=== PATIENT | male | born 1975 | race Caucasian/White ===

== ENCOUNTER 2021-09-03 14:15 | Emergency (ER) | payer BC ==
[~2021-09-03] VITALS: Ht 162.6 cm; Wt 93.2 kg
[2021-09-03 14:22] VITALS: TEMP 97.8
[2021-09-03 17:03] VITALS: BP 122/70; PULSE 61
== END 2021-09-03 17:15 | disposition home or self-care (01) ==
LOC: COL.ER 14:15
DX: H93.13 Tinnitus, bilateral (principal)

== ENCOUNTER 2021-09-26 15:06 | Emergency (ER) | payer BC ==
[~2021-09-26] VITALS: Ht 193 cm; Wt 93.6 kg
[2021-09-26 15:10] VITALS: TEMP 98
[2021-09-26 15:53] LABS: BASO % 0.5 % (0.0-2.0); EOS % 0.7 % (0.0-4.0); GRAN # 2.8 K/mm3 (1.4-6.5); GRAN % 66.8 % (42.2-75.2); HEMATOCRIT 40.7 % (42.0-52.0); HEMOGLOBIN 13.8 g/dl (13.5-18.0); LYMPH # 0.9 K/mm3 (1.2-3.4); LYMPH % 21.9 % (20.0-51.0); MEAN CELL VOLUME 86 fl (80.0-100.0); MEAN CORPUSCULAR HEMOGLOBIN 29 pg (27-31); MEAN CORPUSCULAR HGB CONC 34 g/dl (33.0-37.0); MONO # 0.4 K/mm3 (0.1-0.6); MONO % 9.6 % (1.7-9.3); PLATELET COUNT 152 K/mm3 (130-400); RED BLOOD COUNT 4.75 M/mm3 (4.20-5.60); REDCELL DISTRIBUTION WIDTH-CV 12.5 % (11.5-14.5)
[2021-09-26 16:11] LABS: ALBUMIN 4.2 gm/dL (3.5-5.0); BILIRUBIN,TOTAL 0.7 mg/dL (0.2-1.2); C-REACTIVE PROTEIN 0.11 mg/dL (0.00-0.50); CALCIUM 9.4 mg/dL (8.4-10.2); CREATININE, serum 1.38 mg/dL (0.72-1.25); POTASSIUM 4.2 mmol/L (3.5-4.5)
[2021-09-26] MEDS ORDERED: PRILOSEC 20MG20 MG PO (17:22)
[2021-09-26] MEDS ORDERED: ZOFRAN ODT4 MG PO (17:22)
[2021-09-26 17:54] VITALS: BP 123/75; PULSE 46
[2021-10-01] MEDS ORDERED: MOBIC15 MG PO (08:05)
== END 2021-09-26 18:03 | disposition home or self-care (01) ==
LOC: COL.ER 15:06
PROVIDERS: Family Medicine
DX: M54.2 Cervicalgia (principal); R11.0 Nausea; R51.9 Headache, unspecified; R79.89 Other specified abnormal findings of blood chemistry; Z88.8 Allergy status to other drugs, medicaments and biological substances
CPT/HCPCS: J2405; J7120; Q9967

== ENCOUNTER 2021-10-04 21:21 | Emergency (ER) | payer BC ==
[~2021-10-04] VITALS: Ht 193 cm; Wt 95.5 kg
[~2021-10-04 21:21] MED LIST: MOBIC15 MG PO; PRILOSEC 20MG20 MG PO; ZOFRAN ODT4 MG PO
[2021-10-04 21:35] VITALS: TEMP 98
[2021-10-04 22:33] LABS: BASO % 0.4 % (0.0-2.0); EOS # 0.1 K/mm3 (0.0-0.7); EOS % 1.3 % (0.0-4.0); GRAN # 2.7 K/mm3 (1.4-6.5); GRAN % 58.5 % (42.2-75.2); HEMATOCRIT 40.9 % (42.0-52.0); HEMOGLOBIN 14.3 g/dl (13.5-18.0); LYMPH # 1.4 K/mm3 (1.2-3.4); LYMPH % 30.8 % (20.0-51.0); MEAN CELL VOLUME 83 fl (80.0-100.0); MEAN CORPUSCULAR HEMOGLOBIN 29 pg (27-31); MEAN CORPUSCULAR HGB CONC 35 g/dl (33.0-37.0); MEAN PLATELET VOLUME 10.1 fl (7.4-10.4); MONO # 0.4 K/mm3 (0.1-0.6); MONO % 8.8 % (1.7-9.3); PLATELET COUNT 158 K/mm3 (130-400); RED BLOOD COUNT 4.92 M/mm3 (4.20-5.60); REDCELL DISTRIBUTION WIDTH-CV 12.1 % (11.5-14.5)
[2021-10-04 22:51] LABS: ALBUMIN 4.2 gm/dL (3.5-5.0); BILIRUBIN,TOTAL 0.6 mg/dL (0.2-1.2); CALCIUM 9.4 mg/dL (8.4-10.2); CREATININE, serum 1.3 mg/dL (0.72-1.25); POTASSIUM 3.7 mmol/L (3.5-4.5); TOTAL PROTEIN 6.9 gm/dL (6.2-8.1)
[2021-10-04] MEDS ORDERED: NORCO 325 MG-51 TAB PO (23:32)
[2021-10-04 23:57] VITALS: BP 124/79; PULSE 52
== END 2021-10-04 23:57 | disposition home or self-care (01) ==
LOC: COL.ER 21:21
PROVIDERS: Personal Emergency Response Attendant
DX: R51.9 Headache, unspecified (principal); Z79.1 Long term (current) use of non-steroidal anti-inflammatories (NSAID); Z79.891 Long term (current) use of opiate analgesic
CPT/HCPCS: J0780; J1200; J1885; J7030

== ENCOUNTER → 2021-12-15 | Outpatient (CLI) | payer BC ==
[~2021-12-15] MED LIST changes: +NORCO 325 MG-51 TAB PO
== END ==
LOC: MHCPAIN 12:11
DX: M79.2 Neuralgia and neuritis, unspecified (principal); R51.9 Headache, unspecified
CPT/HCPCS: G0463

== ENCOUNTER → 2022-04-29 | Outpatient (CLI) | payer BC | LOC: COL.RAD 07:40 | DX: R13.12 Dysphagia, oropharyngeal phase (principal) ==

== ENCOUNTER 2022-08-11 13:08 | Emergency (ER) | payer BC ==
[~2022-08-11] VITALS: Ht 190.5 cm; Wt 90.9 kg
[2022-08-11 13:20] VITALS: BP 106/72; PULSE 40; TEMP 97.9
== END 2022-08-11 14:46 | disposition home or self-care (01) ==
LOC: COL.ER 13:08
DX: S61.012A Laceration without foreign body of left thumb without damage to nail, initial encounter (principal); W26.0XXA Contact with knife, initial encounter; Y93.G1 Activity, food preparation and clean up